=== PATIENT | male | born 1960 | race African-American/Black ===

== ENCOUNTER 2022-04-01 14:12 | Emergency (ER) | payer MEDICAID, OTHER ==
[~2022-04-01] VITALS: Ht 167.6 cm; Wt 91.0 kg
[~2022-04-01 14:12] MED LIST: CYAN-50 MT; LIDO700A30 TOP; METO25TA6 PO; NAPR-679 PO; TOPUD PO
[2022-04-01] MEDS ORDERED: ALBUTEROL (0.5%) 2.5MG/0.5ML NEB HHN ONE (16:00)
[2022-04-01 16:12] LABS: CLARITY URINE CLOUDY (CLEAR); COLOR URINE YELLOW (YELLOW); KETONES URINE NEGATIVE (NEGATIVE); LEUKOCYTE ESTERASE URINE 2+ (NEGATIVE); NITRITE URINE NEGATIVE (NEGATIVE); OCCULT BLOOD URINE 3+ (NEGATIVE); PROTEIN URINE 2+ (NEGATIVE); SPECIFIC GRAVITY URINE 1.022 (1.005-1.030)
[2022-04-01] MEDS ORDERED: CEPH500C2 MT (17:34)
[2022-04-01] MEDS ORDERED: ALBU6.7H3 INH (17:34)
[2022-04-01 18:00] VITALS: BP 155/90
== END 2022-04-01 18:09 | disposition home or self-care (01) ==
LOC: ER 14:12
DX: R05.9 Cough, unspecified (principal); R31.9 Hematuria, unspecified; N30.90 Cystitis, unspecified without hematuria; Z79.899 Other long term (current) drug therapy
CPT/HCPCS: 71045; 81003; 87077; 87086; 87186; 94640; 99284; Z7610

== ENCOUNTER 2022-06-23 14:45 | Emergency (ER) | payer OTHER ==
[~2022-06-23] VITALS: Ht 172.7 cm; Wt 93.2 kg
[~2022-06-23 14:45] MED LIST changes: +ALBU6.7H3 INH; +CEPH500C2 MT
[2022-06-23 15:24] LABS: BASOPHILS % 0.7 % (0.0-2.0); HEMOGLOBIN. 11.5 g/dL (14.0-18.0); LYMPHOCYTES % 9.5 % (20.0-50.0); MEAN CORPUSCULAR HEMOGLOBIN 32.5 pg (28.0-32.0); MONOCYTES % 11.4 % (2.0-8.0); NEUTROPHILS % 77.4 % (40.0-76.0); PLATELET 254 x1000/uL (130-400); RED BLOOD CELL COUNT 3.53 mill/uL (4.7-6.1); RED CELL DISTRIBUTION WIDTH 16.4 % (11.6-14.6)
[2022-06-23 15:25] LABS: CHLORIDE 108 mEq/L (98-107)
[2022-06-23] MEDS ORDERED: PREDNISONE 20MG TABLET PO ONE (16:15)
[2022-06-23] MEDS ORDERED: IPRATROPIUM/ALBUTEROL 0.5-3(2.5)MG/3ML NEB HHN ONE (16:15)
[2022-06-23] MEDS ORDERED: AMOXICILLIN/POTASSIUM CLAVULANATE 875/125MG TAB PO ONE (17:00)
[2022-06-23] MEDS ORDERED: FUROSEMIDE 20MG TABLET PO ONE (17:00)
[2022-06-23] MEDS ORDERED: AZITHROMYCIN 500 MG TABLET PO ONE (17:00)
[2022-06-23] MEDS ORDERED: AZIT250T12 MT (18:09)
[2022-06-23] MEDS ORDERED: AMOX1TAB16 MT (18:09)
[2022-06-23] MEDS ORDERED: ALBU6.7H3 INH (18:09)
[2022-06-23] MEDS ORDERED: P50 MT (18:11)
[2022-06-23 18:35] VITALS: BP 126/65
[2022-06-23 19:22] LABS: INR 0.9; PROTHROMBIN TIME 9.8 sec (9.6-11.0)
== END 2022-06-24 01:00 | disposition home or self-care (01) ==
LOC: ER 20:15
DX: J18.9 Pneumonia, unspecified organism (principal); J44.1 Chronic obstructive pulmonary disease with (acute) exacerbation; I50.9 Heart failure, unspecified; F17.200 Nicotine dependence, unspecified, uncomplicated; Z20.822 Contact with and (suspected) exposure to COVID-19
CPT/HCPCS: 36415; 71045; 80053; 83880; 84484; 85025; 85610; 87426; 93005; 94640; 99285; C9803; J7512; Z7610

== ENCOUNTER 2022-06-24 01:03 | Emergency (ER) | payer OTHER ==
[~2022-06-24] VITALS: Ht 172.7 cm; Wt 99.8 kg
[~2022-06-24 01:03] MED LIST changes: +AMOX1TAB16 MT; +AZIT250T12 MT; +P50 MT
[2022-06-24] MEDS ORDERED: SODIUM CHLORIDE 0.9% 1000ML BAG (SEPSIS BOLUS) IV ONE (05:45)
[2022-06-24] MEDS ORDERED: CEFTRIAXONE 1GM PREMIX 50 ML IV ONE (05:45)
[2022-06-24 06:24] LABS: BASOPHILS % 0.4 % (0.0-2.0); EOSINOPHILS % 0.2 % (0.0-5.0); HEMATOCRIT. 36.2 % (42.0-52.0); HEMOGLOBIN. 11.9 g/dL (14.0-18.0); LYMPHOCYTES % 8.7 % (20.0-50.0); MEAN CORPUSCULAR HEMOGLOBIN 32.4 pg (28.0-32.0); MEAN CORPUSCULAR VOLUME 98.4 fL (80.0-94.0); MEAN PLATELET VOLUME 9.2 fl (7.4-10.4); MONOCYTES % 6.6 % (2.0-8.0); NEUTROPHILS % 84.1 % (40.0-76.0); PLATELET 262 x1000/uL (130-400); RED BLOOD CELL COUNT 3.67 mill/uL (4.7-6.1); RED CELL DISTRIBUTION WIDTH 16.5 % (11.6-14.6)
[2022-06-24 06:25] LABS: CHLORIDE 105 mEq/L (98-107)
[2022-06-24 06:44] LABS: CLARITY URINE CLEAR (CLEAR); COLOR URINE YELLOW (YELLOW); KETONES URINE NEGATIVE (NEGATIVE); LEUKOCYTE ESTERASE URINE NEGATIVE (NEGATIVE); NITRITE URINE NEGATIVE (NEGATIVE); OCCULT BLOOD URINE NEGATIVE (NEGATIVE); PH URINE 7.5 (4.5-8.0); PROTEIN URINE NEGATIVE (NEGATIVE); UROBILINOGEN URINE 0.2 E.U./dL (0.2-1.0)
[2022-06-24] MEDS ORDERED: CEFTRIAXONE 1GM PREMIX 50 ML IV NR (08:45)
[2022-06-24 12:00] VITALS: BP 150/89
== END 2022-06-24 13:35 | disposition short-term general hospital (02) ==
LOC: ER 01:03 → CANBEDREQ 08:09 → ER 13:35
DX: J18.9 Pneumonia, unspecified organism (principal); R09.02 Hypoxemia; J44.1 Chronic obstructive pulmonary disease with (acute) exacerbation; Z79.899 Other long term (current) drug therapy
CPT/HCPCS: 36415; 71045; 80053; 81003; 83605; 83880; 84484; 85025; 87040; 93005; 96365; 96366; 99285; J0696; J7030; Z7610

== ENCOUNTER 2022-07-28 10:59 | Emergency (ER) | payer MEDICAID, OTHER ==
[~2022-07-28] VITALS: Ht 172.7 cm; Wt 97.0 kg
[2022-07-28 11:04] VITALS: BP 174/99
[2022-07-28 11:54] LABS: BASOPHILS % 0.8 % (0.0-2.0); EOSINOPHILS % 1.2 % (0.0-5.0); HEMATOCRIT. 34.4 % (42.0-52.0); HEMOGLOBIN. 11.6 g/dL (14.0-18.0); LYMPHOCYTES % 11.4 % (20.0-50.0); MEAN CORPUSCULAR HEMOGLOBIN 32.7 pg (28.0-32.0); MEAN CORPUSCULAR VOLUME 97.2 fL (80.0-94.0); MEAN PLATELET VOLUME 8.9 fl (7.4-10.4); MONOCYTES % 12.9 % (2.0-8.0); NEUTROPHILS % 73.7 % (40.0-76.0); PLATELET 264 x1000/uL (130-400); RED BLOOD CELL COUNT 3.53 mill/uL (4.7-6.1); RED CELL DISTRIBUTION WIDTH 17.6 % (11.6-14.6)
[2022-07-28 12:01] LABS: CHLORIDE 110 mEq/L (98-107)
[2022-07-28] MEDS ORDERED: DOXY100C5 MT (14:00)
[2022-07-28] MEDS ORDERED: ALBU6.7H3 INH (14:00)
[2022-07-28] MEDS ORDERED: AMLO5TAB88 MT (14:00)
== END 2022-07-28 14:52 | disposition home or self-care (01) ==
LOC: ER 10:59
DX: I10 Essential (primary) hypertension (principal); J18.9 Pneumonia, unspecified organism; I11.0 Hypertensive heart disease with heart failure; I50.9 Heart failure, unspecified; J44.1 Chronic obstructive pulmonary disease with (acute) exacerbation; Z76.0 Encounter for issue of repeat prescription; Z79.899 Other long term (current) drug therapy
CPT/HCPCS: 36415; 71045; 80053; 83880; 84484; 85025; 93005; 99285

== ENCOUNTER 2024-04-12 13:44 | Emergency (ER) | payer MEDICAID ==
[~2024-04-12] VITALS: Ht 172.7 cm; Wt 117.0 kg
[~2024-04-12 13:44] MED LIST changes: -ALBU6.7H3 INH; +AMLO10TA80 PO; +AMLO5TAB88 PO; -AMOX1TAB16 MT; -AZIT250T12 MT; +BECL10.6 IH; -CEPH500C2 MT; -CYAN-50 MT; +FURO80TA87 MT; +HYDR50TA39 PO; -LIDO700A30 TOP; -METO25TA6 PO; -NAPR-679 PO; +NAPR-681 PO; -P50 MT; +POTA-205 MT; -TOPUD PO
[2024-04-12 15:22] LABS: BASOPHILS % 0.9 % (0.0-2.0); EOSINOPHILS % 1.7 % (0.0-5.0); HEMATOCRIT. 37.1 % (42.0-52.0); LYMPHOCYTES % 14.7 % (20.0-50.0); MEAN CORPUSCULAR HEMOGLOBIN 31.8 pg (28.0-32.0); MEAN CORPUSCULAR HGB CONC 32.4 g/dL (31.0-37.0); MEAN CORPUSCULAR VOLUME 98.2 fL (80.0-94.0); MEAN PLATELET VOLUME 9.2 fl (7.4-10.4); MONOCYTES % 12.4 % (2.0-8.0); NEUTROPHILS % 70.3 % (40.0-76.0); PLATELET 226 x1000/uL (130-400); RED BLOOD CELL COUNT 3.77 mill/uL (4.7-6.1); RED CELL DISTRIBUTION WIDTH 15.8 % (11.6-14.6)
[2024-04-12 15:32] LABS: CHLORIDE 109 mEq/L (98-107); POTASSIUM 4.2 mEq/L (3.5-5.1); SODIUM 141 mEq/L (136-145)
[2024-04-12 15:33] LABS: CALCIUM 9.1 mg/dL (8.7-10.4); CARBON DIOXIDE 28 mEq/L (21-32)
[2024-04-12 15:38] LABS: GLUCOSE 133 mg/dL (70-105); TROPONIN I HIGH SENSITIVITY 17 ng/L (3.0-53); UREA NITROGEN BLOOD 10 mg/dL (9-23)
[2024-04-12] MEDS ORDERED: POTA-205 MT (16:12)
[2024-04-12] MEDS ORDERED: BECL10.6 IH (16:12)
[2024-04-12] MEDS ORDERED: FURO80TA87 MT (16:12)
[2024-04-12] MEDS ORDERED: AMLO5TAB88 MT (16:13)
[2024-04-12] MEDS: PREDNISONE 20MG TABLET PO ONE (16:27)
[2024-04-12] MEDS: AMLODIPINE 5MG TABLET PO ONE (16:27)
[2024-04-12] MEDS: FUROSEMIDE 40MG TABLET PO ONE (17:01)
[2024-04-12] MEDS ORDERED: IPRATROPIUM/ALBUTEROL 0.5-3(2.5)MG/3ML NEB ONE (17:24)
[2024-04-12 17:30] VITALS: PULSE 87; RESP 18; O2SAT 97
[2024-04-12] MEDS: IPRATROPIUM/ALBUTEROL 0.5-3(2.5)MG/3ML NEB HHN ONE (17:30)
[2024-04-12 17:45] VITALS: BP 198/96; PULSE 77; RESP 16; TEMP 36.8; O2SAT 99
== END 2024-04-12 17:46 | disposition home or self-care (01) ==
LOC: ER 13:44
DX: J44.1 Chronic obstructive pulmonary disease with (acute) exacerbation (principal); I11.0 Hypertensive heart disease with heart failure; I50.9 Heart failure, unspecified; Z79.51 Long term (current) use of inhaled steroids; Z79.899 Other long term (current) drug therapy
CPT/HCPCS: 80048; 85025; 84484; 36415; 71045; 94640; 93005; 99285; J7512; Z7610 ×3